=== PATIENT | female | born 1940 | race Hispanic/Latino ===

== ENCOUNTER → 2019-05-10 | Outpatient (CLI) | payer OTHER ==
[~2019-05-10] MED LIST: ACET-2743 PO; AEC81 PO; BACL10TA PO; CALC600T12 PO; CHOL500045 PO; LOSA50TA64 PO; METO50TA18 PO; OMEG300C3 PO; VITA1CAP PO
== END | disposition home or self-care (01) ==
LOC: RAH 11:57
PROVIDERS: ATTEND Internal Medicine
DX: M47.816 Spondylosis without myelopathy or radiculopathy, lumbar region (principal); M25.78 Osteophyte, vertebrae
CPT/HCPCS: 72100

== ENCOUNTER → 2019-07-31 | Outpatient (CLI) | payer OTHER | END | disposition home or self-care (01) | LOC: RAH 12:16 | PROVIDERS: ATTEND Internal Medicine | DX: M25.562 Pain in left knee (principal); M17.12 Unilateral primary osteoarthritis, left knee | CPT/HCPCS: 73562 ==

== ENCOUNTER 2023-05-31 17:38 | Emergency (ER) | payer MEDICARE ==
[~2023-05-31] VITALS: Ht 160 cm; Wt 62.6 kg
[~2023-05-31 17:38] MED LIST changes: +CALC-1125 PO; -CALC600T12 PO
[2023-05-31 18:50] LABS: BASOPHILS # (AUTO) 0.02 K/uL (0.00-0.20); BASOPHILS % (AUTO) 0.1 % (0.0-5.0); IMMATURE GRANULOCYTE ABSOLUTE 0.19 K/uL (0-1); LYMPHOCYTES # (AUTO) 1.7 K/uL (1.0-4.8); LYMPHOCYTES % (AUTO) 11.6 % (21.0-51.0); MEAN CORPUSCULAR HEMOGLOBIN 30.6 pg (27.0-33.0); MEAN CORPUSCULAR HGB CONC 34.4 g/dL (32.0-36.0); MEAN CORPUSCULAR VOLUME 89.1 fL (79-99); MONOCYTES # (AUTO) 1.9 K/uL (0.1-1.0); MONOCYTES % (AUTO) 12.7 % (3.0-13.0); NEUTROPHILS # (AUTO) 10.9 K/uL (1.8-7.7); NEUTROPHILS % (AUTO) 74.3 % (40.0-77.0); PLATELET COUNT (AUTO) 129 K/uL (130-400); RED BLOOD CELL COUNT(AUTO) 3.59 MIL/uL (4.00-5.50); WHITE BLOOD COUNT (AUTO) 14.6 K/uL (4.8-10.8)
[2023-05-31 19:09] LABS: ALBUMIN 2.4 g/dL (3.5-5.0); BILIRUBIN,TOTAL 0.7 mg/dL (0.2-1.0); TOTAL PROTEIN, SERUM 6.8 g/dL (6.0-8.3)
[2023-05-31 19:46] LABS: INR 1.15 (0.85-1.15); PROTHROMBIN TIME 13.2 SEC (9.6-11.6)
[2023-05-31] MEDS ORDERED: 0.9%NACL 1000ML 1,000 ML IV ONE (20:00)
[2023-05-31] MEDS ORDERED: IOHEXOL-350 75 ML VIAL IV ONE (21:27)
[2023-05-31 22:26] LABS: RAPID GROUP A STREP negative (NEGATIVE)
[2023-05-31 22:35] LABS: COVID19 (SARS ANTIGEN RAPID) PRESUMPTIVE NEGATIVE (NEGATIVE)
[2023-05-31 22:45] LABS: INFLUENZA TYPE A NEGATIVE FOR TYPE A (NEG); INFLUENZA TYPE B NEGATIVE FOR TYPE B (NEG)
[2023-05-31 23:08] VITALS: BP 127/84; PULSE 95; RESP 18; O2SAT 99
== END 2023-05-31 23:18 | disposition home or self-care (01) ==
LOC: EDH 17:38
DX: R06.02 Shortness of breath (principal); R59.0 Localized enlarged lymph nodes; E78.00 Pure hypercholesterolemia, unspecified; I10 Essential (primary) hypertension; Z90.710 Acquired absence of both cervix and uterus; Z79.899 Other long term (current) drug therapy; Z20.822 Contact with and (suspected) exposure to COVID-19
CPT/HCPCS: 99285; 84484; 80053; 83880; 85025; 85378; 85610; 85730; 87880; 87804 ×2; 83605; 87426; 36415; 71045; 71270; 93005; Q9967

== ENCOUNTER 2023-06-02 15:03 | Emergency (ER) | payer MEDICARE ==
[~2023-06-02] VITALS: Ht 160 cm; Wt 63.5 kg
[2023-06-02 15:32] LABS: BASOPHILS # (AUTO) 0.03 K/uL (0.00-0.20); BASOPHILS % (AUTO) 0.2 % (0.0-5.0); HEMATOCRIT 31.6 % (36-48); IMMATURE GRANULOCYTE ABSOLUTE 0.12 K/uL (0-1); LYMPHOCYTES % (AUTO) 12.7 % (21.0-51.0); MEAN CORPUSCULAR HEMOGLOBIN 30.3 pg (27.0-33.0); MEAN CORPUSCULAR HGB CONC 34.2 g/dL (32.0-36.0); MEAN CORPUSCULAR VOLUME 88.8 fL (79-99); MONOCYTES # (AUTO) 2.5 K/uL (0.1-1.0); MONOCYTES % (AUTO) 16.2 % (3.0-13.0); NEUTROPHILS # (AUTO) 10.7 K/uL (1.8-7.7); NEUTROPHILS % (AUTO) 70.1 % (40.0-77.0); PLATELET COUNT (AUTO) 102 K/uL (130-400); RED BLOOD CELL COUNT(AUTO) 3.56 MIL/uL (4.00-5.50); RED CELL DISTRIBUTION WIDTH 14.2 % (11.0-15.5); WHITE BLOOD COUNT (AUTO) 15.3 K/uL (4.8-10.8)
[2023-06-02 15:50] LABS: B-TYPE NATRIURETIC PEPTIDE 112 pg/mL (0-100)
[2023-06-02 16:15] LABS: BILIRUBIN,TOTAL 0.8 mg/dL (0.2-1.0); CREATININE 1.1 mg/dL (0.5-1.5); MAGNESIUM 1.6 mg/dL (1.80-2.40); POTASSIUM 4.1 mmol/L (3.5-5.1); TOTAL PROTEIN, SERUM 6.1 g/dL (6.0-8.3)
[2023-06-02 16:28] LABS: APPEARANCE,URINE CLEAR (CLEAR); BILIRUBIN,URINE NEGATIVE (NEGATIVE); COLOR,URINE YELLOW (YELLOW); GLUCOSE, URINE (UA) NEGATIVE (NEGATIVE); KETONES,URINE NEGATIVE (NEGATIVE); LEUKOCYTE ESTERASE ,URINE 250 Leu/uL (NEGATIVE); NITRATE,URINE NEGATIVE (NEGATIVE); PH,URINE 5.5 (5.0-8.0); PROTEIN,URINE 10 mg/dL (NEGATIVE); UROBILINOGEN,URINE 0.2 mg/dL (0.2-1.0)
[2023-06-02] MEDS ORDERED: ACETAMINOPHEN 500 MG TABLET PO ONE (16:30)
[2023-06-02 16:44] LABS: ADD UA MICROSCOPIC YES
[2023-06-02 16:47] LABS: BACTERIA,URINE MANY /HPF (None Seen); NON-SQUAMOUS EPITHELIAL CELL <1 /HPF (0-2); SQUAMOUS EPITHELIAL CELL,UR RARE /HPF (0-2); WBC,URINE 51-100 /HPF (0-1)
[2023-06-02] MEDS ORDERED: CEFTRIAXONE 1G VIAL IVPB ONE (18:00)
[2023-06-02] MEDS ORDERED: AZITHROMYCIN 250 MG TABLET PO ONE (18:30)
[2023-06-02 18:38] VITALS: BP 123/61; PULSE 83; RESP 17; O2SAT 98
[2023-06-02] MEDS ORDERED: CEFD300C3 PO (18:38)
[2023-06-02] MEDS ORDERED: AZIT250T9 PO (18:38)
== END 2023-06-02 19:46 | disposition home or self-care (01) ==
LOC: EDH 15:03
DX: J18.9 Pneumonia, unspecified organism (principal); N39.0 Urinary tract infection, site not specified; I10 Essential (primary) hypertension; E78.00 Pure hypercholesterolemia, unspecified; Z88.8 Allergy status to other drugs, medicaments and biological substances; Z79.899 Other long term (current) drug therapy; Z90.710 Acquired absence of both cervix and uterus
CPT/HCPCS: 99285; 96365; 71045; 83735; 84484; 80053; 83880; 85025; 87040 ×2; 87077; 87088; 87186; 81001; 36415; 93005; J0696

== ENCOUNTER 2023-07-03 05:25 | Inpatient (IN) | payer MEDICARE ==
[~2023-07-03] VITALS: Ht 170.2 cm; Wt 62.1 kg
[2023-07-03] VITALS (7 sets, daily range): BP systolic 128–145; BP diastolic 49–77; PULSE 96–180; RESP 16–18; O2SAT 93–97
[~2023-07-03 05:25] MED LIST changes: +AZIT250T9 PO; +CEFD300C3 PO
[2023-07-03 05:56] LABS: BASOPHILS # (AUTO) 0.05 K/uL (0.00-0.20); BASOPHILS % (AUTO) 0.5 % (0.0-5.0); HEMATOCRIT 26.7 % (36-48); IMMATURE GRANULOCYTE ABSOLUTE 0.45 K/uL (0-1); LYMPHOCYTES # (AUTO) 1.9 K/uL (1.0-4.8); LYMPHOCYTES % (AUTO) 17.7 % (21.0-51.0); MEAN CORPUSCULAR HGB CONC 35.2 g/dL (32.0-36.0); MEAN CORPUSCULAR VOLUME 93.7 fL (79-99); MONOCYTES # (AUTO) 1.6 K/uL (0.1-1.0); MONOCYTES % (AUTO) 14.6 % (3.0-13.0); NEUTROPHILS # (AUTO) 6.7 K/uL (1.8-7.7); PLATELET COUNT (AUTO) 82 K/uL (130-400); RED BLOOD CELL COUNT(AUTO) 2.85 MIL/uL (4.00-5.50); RED CELL DISTRIBUTION WIDTH 16.9 % (11.0-15.5); WHITE BLOOD COUNT (AUTO) 10.6 K/uL (4.8-10.8)
[2023-07-03 05:57] LABS: APPEARANCE,URINE CLEAR (CLEAR); BILIRUBIN,URINE NEGATIVE (NEGATIVE); COLOR,URINE YELLOW (YELLOW); GLUCOSE, URINE (UA) NEGATIVE (NEGATIVE); KETONES,URINE NEGATIVE (NEGATIVE); LEUKOCYTE ESTERASE ,URINE NEGATIVE Leu/uL (NEGATIVE); NITRATE,URINE NEGATIVE (NEGATIVE); OCCULT BLOOD,URINE SMALL (NEGATIVE); PH,URINE 5.5 (5.0-8.0); PROTEIN,URINE 10 mg/dL (NEGATIVE); UROBILINOGEN,URINE 0.2 mg/dL (0.2-1.0)
[2023-07-03 05:59] LABS: ADD UA MICROSCOPIC YES
[2023-07-03] MEDS ORDERED: CEFTRIAXONE 2GM VIAL IVPB ONE (06:00)
[2023-07-03] MEDS ORDERED: 0.9%NACL 1000ML 1,572 ML IV ONE (06:00)
[2023-07-03 06:01] LABS: MUCUS,URINE RARE LPF (None Seen); SQUAMOUS EPITHELIAL CELL,UR RARE /HPF (0-2)
[2023-07-03 06:15] LABS: SARS-CoV-2, RNA, NAAT NEGATIVE SARS CoV-2 (NEGATIVE)
[2023-07-03 06:16] LABS: ALBUMIN 2.2 g/dL (3.5-5.0); BILIRUBIN,TOTAL 0.8 mg/dL (0.2-1.0); CREATININE 1.1 mg/dL (0.5-1.5); MAGNESIUM 1.2 mg/dL (1.80-2.40); POTASSIUM 3.7 mmol/L (3.5-5.1); TOTAL PROTEIN, SERUM 6.4 g/dL (6.0-8.3)
[2023-07-03 06:19] LABS: INFLUENZA TYPE A Negative For Type A (NEGATIVE); INFLUENZA TYPE B Negative For Type B (NEGATIVE)
[2023-07-03] MEDS ORDERED: ACETAMINOPHEN 325 MG TAB PO ONE (06:30)
[2023-07-03] MEDS ORDERED: ONDANSETRON 4MG INJ IV PRN (08:30)
[2023-07-03] MEDS ORDERED: CEFTRIAXONE 1G VIAL 1 GM in 0.9%NACL 50ML 50 ML IV SCH (08:30)
[2023-07-03] MEDS: FAMOTIDINE 20MG TAB PO SCH ×2 (08:47→20:59)
[2023-07-03] MEDS ORDERED: CEFTRIAXONE 1G VIAL IVPB SCH (09:00)
[2023-07-03] MEDS ORDERED: ENOXAPARIN SODIUM 30 MG/0.3 ML SQ SCH ×2 (09:00→21:00)
[2023-07-03] MEDS: 0.9%NACL 1000ML 1,000 ML IV SCH ×2 (09:29→21:04)
[2023-07-03] MEDS ORDERED: DILTIAZEM 25MG INJ IVP ONE (10:30)
[2023-07-03] MEDS ORDERED: METOPROLOL TARTRATE 25 MG TAB PO ONE (11:00)
[2023-07-03] MEDS: DILTIAZEM 125 MG/25 ML INJ 125 MG in 0.9%NACL 100ML 100 ML IV SCH ×2 (12:09→21:04)
[2023-07-03] MEDS: DOXYCYCLINE 100MG+NS 250ML IV SCH ×2 (12:10→23:46)
[2023-07-03] MEDS: MAGNESIUM 2GM PREMIX 50ML 50 ML IV PRN (12:41)
[2023-07-03] MEDS ORDERED: DILTIAZEM 50MG VIAL IV SCH (13:30)
[2023-07-03] MEDS: ACETAMINOPHEN 325 MG TAB PO PRN ×2 (14:18→22:25)
[2023-07-03] MEDS: METOPROLOL TARTRATE 1 MG/ML 5ML VIAL IV PRN ×3 (16:07→23:45)
[2023-07-03] MEDS: METOPROLOL TARTRATE 25 MG TAB PO SCH ×2 (16:16→21:00)
[2023-07-03] MEDS: [UNRECOGNIZED DRUG - REMARK] MISC SCH (16:30)
[2023-07-03] MEDS ORDERED: METOPROLOL TARTRATE 1 MG/ML 5ML VIAL IV ONE (16:30)
[2023-07-03] MEDS ORDERED: FERR500P12 MC (16:31)
[2023-07-03] MEDS ORDERED: METO50TA18 PO (16:31)
[2023-07-03] MEDS ORDERED: CELE200 PO (16:31)
[2023-07-03] MEDS ORDERED: BACL10TA PO (16:31)
[2023-07-03] MEDS ORDERED: OMEP20CA12 PO (16:31)
[2023-07-03] MEDS ORDERED: METOPROLOL TARTRATE 25 MG TAB PO SCH (21:00)
[2023-07-04] VITALS (8 sets, daily range): BP systolic 146–161; BP diastolic 54–71; PULSE 85–115; RESP 17–18; O2SAT 96–99
[2023-07-04 04:14] LABS: BASOPHILS # (AUTO) 0.04 K/uL (0.00-0.20); BASOPHILS % (AUTO) 0.3 % (0.0-5.0); HEMATOCRIT 25.9 % (36-48); IMMATURE GRANULOCYTE ABSOLUTE 0.55 K/uL (0-1); LYMPHOCYTES # (AUTO) 2.1 K/uL (1.0-4.8); LYMPHOCYTES % (AUTO) 14.3 % (21.0-51.0); MEAN CORPUSCULAR HEMOGLOBIN 32.2 pg (27.0-33.0); MEAN CORPUSCULAR HGB CONC 33.6 g/dL (32.0-36.0); MEAN CORPUSCULAR VOLUME 95.9 fL (79-99); MONOCYTES # (AUTO) 2.7 K/uL (0.1-1.0); MONOCYTES % (AUTO) 18.9 % (3.0-13.0); NEUTROPHILS % (AUTO) 62.7 % (40.0-77.0); PLATELET COUNT (AUTO) 77 K/uL (130-400); RED CELL DISTRIBUTION WIDTH 17.4 % (11.0-15.5); WHITE BLOOD COUNT (AUTO) 14.3 K/uL (4.8-10.8)
[2023-07-04 04:27] LABS: TOTAL IRON BINDING CAPACITY 164 mcg/dL (250-450)
[2023-07-04 04:31] LABS: IRON, SERUM < 5 mcg/dL (50-170)
[2023-07-04 04:32] LABS: WBC MORPHOLOGY CONSISTENT W/DIFF
[2023-07-04 04:55] LABS: ALBUMIN 1.7 g/dL (3.5-5.0); ASPARTATE AMINOTRANSFERASE 23 U/L (10-37); BILIRUBIN,TOTAL 0.8 mg/dL (0.2-1.0); CARBON DIOXIDE 21 mmol/L (21-32); CHLORIDE 103 mmol/L (101-111); CREATININE 1.1 mg/dL (0.5-1.5); FERRITIN 719 ng/mL (15-150); GLOMERULAR FILTR. RATE CALC 50 mL/min (>90); GLUCOSE,RANDOM 121 mg/dL (70-105); POTASSIUM 3.8 mmol/L (3.5-5.1); SODIUM SERUM 133 mmol/L (136-145); TOTAL PROTEIN, SERUM 5.6 g/dL (6.0-8.3); UREA NITROGEN, BLOOD 19 mg/dL (7-18)
[2023-07-04 04:57] LABS: ALANINE AMINOTRANSFERASE < 6 U/L (12-78)
[2023-07-04] MEDS: CEFTRIAXONE 1G VIAL IVPB SCH (05:53)
[2023-07-04] MEDS: 0.9%NACL 1000ML 1,000 ML IV SCH (05:54)
[2023-07-04] MEDS: MAGNESIUM 2GM PREMIX 50ML 50 ML IV PRN (05:54)
[2023-07-04] MEDS: BISACODYL 5 MG TABLET.DR PO SCH (07:56)
[2023-07-04] MEDS: METOPROLOL TARTRATE 25 MG TAB PO SCH ×2 (07:56→19:57)
[2023-07-04] MEDS: [UNRECOGNIZED DRUG - REMARK] MISC SCH (10:30)
[2023-07-04] MEDS: FUROSEMIDE 20MG VIAL IV SCH ×2 (11:19→23:34)
[2023-07-04] MEDS: DOXYCYCLINE 100MG+NS 250ML IV SCH ×2 (11:19→23:35)
[2023-07-04 13:07] LABS: HEMOGLOBIN A1C 5.8 % (4.0-6.0)
[2023-07-04] MEDS ORDERED: IRON SUCROSE COMPLEX 300 MG in 0.9% NACL 250ML 250 ML IV ONE (21:00)
[2023-07-04] MEDS ORDERED: APIXABAN 5 MG TABLET PO SCH (21:00)
[2023-07-04] MEDS ORDERED: ENOXAPARIN SODIUM 60 MG/0.6 ML SQ SCH (21:00)
[2023-07-05] VITALS (139 sets, daily range): BP systolic 93–170; BP diastolic 34–117; PULSE 66–176; RESP 13–36; TEMP 98.3; O2SAT 97–100
[2023-07-05] MEDS ORDERED: LEVETIRACETAM 500 MG/5 ML SD VIAL IV ONE ×2 (02:29→02:30)
[2023-07-05] MEDS ORDERED: HYDRALAZINE 20MG/ML VIAL IV PRN (02:30)
[2023-07-05] MEDS ORDERED: 0.9%NACL 1000ML 1,000 ML IV SCH (03:00)
[2023-07-05] MEDS ORDERED: LABETALOL 20MG SYG IV PRN (03:00)
[2023-07-05] MEDS: METOPROLOL TARTRATE 1 MG/ML 5ML VIAL IV PRN ×5 (03:07→16:56)
[2023-07-05] MEDS: LEVETIRACETAM 500 MG/5 ML SD VIAL IV SCH ×3 (03:10→20:15)
[2023-07-05 04:22] LABS: BASOPHILS # (AUTO) 0.03 K/uL (0.00-0.20); BASOPHILS % (AUTO) 0.2 % (0.0-5.0); HEMATOCRIT 23.5 % (36-48); IMMATURE GRANULOCYTE ABSOLUTE 0.26 K/uL (0-1); LYMPHOCYTES # (AUTO) 1.9 K/uL (1.0-4.8); LYMPHOCYTES % (AUTO) 13.6 % (21.0-51.0); MEAN CORPUSCULAR HEMOGLOBIN 31.9 pg (27.0-33.0); MEAN CORPUSCULAR VOLUME 93.6 fL (79-99); MONOCYTES # (AUTO) 1.9 K/uL (0.1-1.0); MONOCYTES % (AUTO) 14.2 % (3.0-13.0); NEUTROPHILS # (AUTO) 9.6 K/uL (1.8-7.7); NEUTROPHILS % (AUTO) 70.1 % (40.0-77.0); NUCLEATED RED BLOOD CELLS 0.1 % (0.0-0.19); PLATELET COUNT (AUTO) 73 K/uL (130-400); RED BLOOD CELL COUNT(AUTO) 2.51 MIL/uL (4.00-5.50); RED CELL DISTRIBUTION WIDTH 17.2 % (11.0-15.5); WHITE BLOOD COUNT (AUTO) 13.6 K/uL (4.8-10.8)
[2023-07-05 04:38] LABS: INR 1.44 (0.85-1.15); PROTHROMBIN TIME 16.3 SEC (9.6-11.6)
[2023-07-05 04:40] LABS: PARTIAL THROMBOPLASTIN TIME 61.3 SEC (26.3-35.5)
[2023-07-05 04:41] LABS: ALBUMIN 1.6 g/dL (3.5-5.0); ASPARTATE AMINOTRANSFERASE 22 U/L (10-37); CARBON DIOXIDE 21 mmol/L (21-32); CHLORIDE 100 mmol/L (101-111); CREATININE 0.9 mg/dL (0.5-1.5); GLOMERULAR FILTR. RATE CALC 64 mL/min (>90); GLUCOSE,RANDOM 123 mg/dL (70-105); SODIUM SERUM 132 mmol/L (136-145); TOTAL PROTEIN, SERUM 5.5 g/dL (6.0-8.3); UREA NITROGEN, BLOOD 21 mg/dL (7-18)
[2023-07-05 04:46] LABS: ALANINE AMINOTRANSFERASE < 6 U/L (12-78); POTASSIUM 2.7 mmol/L (3.5-5.1)
[2023-07-05] MEDS: CEFTRIAXONE 1G VIAL IVPB SCH (05:01)
[2023-07-05] MEDS ORDERED: POTASSIUM CHLORIDE 10MEQ/100ML 10 MEQ/100 ML ML IV ONE (05:30)
[2023-07-05] MEDS: ACETAMINOPHEN 325 MG TAB PO PRN ×2 (05:40→16:56)
[2023-07-05] MEDS ORDERED: POTASSIUM CHLORIDE 10% ELIXIR 20 MEQ/15 ML UDCUP PO ONE ×2 (06:00→08:00)
[2023-07-05] MEDS ORDERED: SODIUM BICARB 8.4% 50ML SYRINGE IVP SCH (07:30)
[2023-07-05] MEDS: PANTOPRAZOLE 40 MG TAB DR PO SCH (08:50)
[2023-07-05] MEDS: METOPROLOL TARTRATE 25 MG TAB PO SCH ×2 (08:50→20:15)
[2023-07-05] MEDS: MAGNESIUM 2GM PREMIX 50ML 50 ML IV PRN ×2 (08:51→14:33)
[2023-07-05] MEDS: BISACODYL 5 MG TABLET.DR PO SCH ×2 (09:00→09:07)
[2023-07-05] MEDS ORDERED: DEXTROSE 50%-WATER 50 ML DISP.SYRIN IV PRN (09:00)
[2023-07-05] MEDS ORDERED: KCL 20 MEQ ERTAB PO PRN (09:00)
[2023-07-05] MEDS ORDERED: GLUCAGON 1MG KIT 1 MG ML IM PRN (09:00)
[2023-07-05] MEDS ORDERED: 0.9%NACL 50ML IV SCH (09:30)
[2023-07-05] MEDS: FUROSEMIDE 20MG VIAL IV SCH ×2 (09:34→09:45)
[2023-07-05] MEDS: ZOSYN 3.375GM +NS 50ML IVPB SCH ×2 (10:29→16:57)
[2023-07-05] MEDS: IRON SUCROSE COMPLEX 300 MG in 0.9% NACL 250ML 250 ML IV SCH (10:29)
[2023-07-05] MEDS ORDERED: COMPOUND IV MISC 1 EACH IVSOLN MISC PRN (12:00)
[2023-07-05 12:17] LABS: MAGNESIUM 7.4 mg/dL (1.80-2.40); POTASSIUM 3.1 mmol/L (3.5-5.1)
[2023-07-05 12:19] LABS: APPEARANCE,URINE CLEAR (CLEAR); BILIRUBIN,URINE NEGATIVE (NEGATIVE); COLOR,URINE LIGHT-YELLOW (YELLOW); GLUCOSE, URINE (UA) NEGATIVE (NEGATIVE); KETONES,URINE NEGATIVE (NEGATIVE); LEUKOCYTE ESTERASE ,URINE NEGATIVE Leu/uL (NEGATIVE); NITRATE,URINE NEGATIVE (NEGATIVE); PROTEIN,URINE NEGATIVE (NEGATIVE); UROBILINOGEN,URINE 0.2 mg/dL (0.2-1.0)
[2023-07-05 12:26] LABS: ADD UA MICROSCOPIC YES
[2023-07-05] MEDS: DOXYCYCLINE 100MG+NS 250ML IV SCH ×2 (12:29→23:36)
[2023-07-05 13:04] LABS: RBC,URINE 0-1 /HPF (0-1); WBC,URINE 0-1 /HPF (0-1)
[2023-07-05] MEDS: KCL 20 MEQ ERTAB PO SCH (14:34)
[2023-07-05] MEDS ORDERED: DILTIAZEM 25MG INJ IVP ONE ×3 (14:43→16:00)
[2023-07-05] MEDS ORDERED: AMIODARONE 900MG VIAL 150 MG in DEXTROSE 5%-WATER 100 ML IV SCH (15:00)
[2023-07-05] MEDS ORDERED: DILTIAZEM 125 MG/25 ML INJ 125 MG in 0.9%NACL 100ML 100 ML IV PRN ×4 (15:00)
[2023-07-05] MEDS ORDERED: AMIODARONE 900MG VIAL 360 MG in DEXTROSE 5%-WATER 200 ML IV ONE (15:15)
[2023-07-05 17:19] LABS: ABG BASE EXCESS -1.5 mmol/L (-2.0-3.0); ABG HCO3 20.4 mmol/L (21.0-28.0); ABG OXYGEN SATURATION 95.1 % (95.0-99.0); ABG PCO2 25 mmHg (32-45); CARBON MONOXIDE 0.3; HHb 4.8; PO2, ARTERIAL BG 76.8 mmHg (83.0-108.0); VENT MODE, BG 2LNC (ROOM AIR)
[2023-07-05] MEDS: BUMETANIDE 2.5MG/10ML VIAL 40 ML IV SCH (18:08)
[2023-07-05] MEDS: AMIODARONE 900MG VIAL 540 MG in DEXTROSE 5%-WATER 300 ML IV SCH (20:56)
[2023-07-06] VITALS (75 sets, daily range): BP systolic 114–155; BP diastolic 43–69; PULSE 72–98; RESP 13–31; O2SAT 97–99
[2023-07-06] MEDS: ZOSYN 3.375GM +NS 50ML IVPB SCH ×3 (01:18→17:58)
[2023-07-06] MEDS: BUMETANIDE 2.5MG/10ML VIAL 40 ML IV SCH ×2 (03:33→22:43)
[2023-07-06 04:10] LABS: BASOPHILS # (AUTO) 0.04 K/uL (0.00-0.20); BASOPHILS % (AUTO) 0.3 % (0.0-5.0); EOSINOPHILS # (AUTO) 0.01 K/uL (0.00-0.70); EOSINOPHILS % (AUTO) 0.1 % (0.0-8.0); HEMATOCRIT 21.2 % (36-48); IMMATURE GRANULOCYTE ABSOLUTE 0.18 K/uL (0-1); LYMPHOCYTES # (AUTO) 1.9 K/uL (1.0-4.8); MEAN CORPUSCULAR HEMOGLOBIN 31.7 pg (27.0-33.0); MEAN CORPUSCULAR HGB CONC 33.5 g/dL (32.0-36.0); MEAN CORPUSCULAR VOLUME 94.6 fL (79-99); MONOCYTES # (AUTO) 1.7 K/uL (0.1-1.0); MONOCYTES % (AUTO) 13.3 % (3.0-13.0); NEUTROPHILS # (AUTO) 8.9 K/uL (1.8-7.7); NEUTROPHILS % (AUTO) 69.9 % (40.0-77.0); NUCLEATED RED BLOOD CELLS 0.2 % (0.0-0.19); PLATELET COUNT (AUTO) 63 K/uL (130-400); RED BLOOD CELL COUNT(AUTO) 2.24 MIL/uL (4.00-5.50); RED CELL DISTRIBUTION WIDTH 17.5 % (11.0-15.5); WHITE BLOOD COUNT (AUTO) 12.7 K/uL (4.8-10.8)
[2023-07-06 04:25] LABS: ALBUMIN 1.7 g/dL (3.5-5.0); BILIRUBIN,TOTAL 1.3 mg/dL (0.2-1.0); CREATININE 1.1 mg/dL (0.5-1.5); POTASSIUM 3.1 mmol/L (3.5-5.1); TOTAL PROTEIN, SERUM 5.6 g/dL (6.0-8.3)
[2023-07-06] MEDS: POTASSIUM CHLORIDE 20MEQ/100ML 100 ML IV PRN ×2 (05:38→15:42)
[2023-07-06] MEDS: PANTOPRAZOLE 40 MG TAB DR PO SCH (09:00)
[2023-07-06] MEDS: BISACODYL 5 MG TABLET.DR PO SCH (09:00)
[2023-07-06] MEDS: METOPROLOL TARTRATE 25 MG TAB PO SCH ×2 (09:00→20:33)
[2023-07-06] MEDS: KCL 20 MEQ ERTAB PO SCH ×2 (09:00→20:32)
[2023-07-06] MEDS: LEVETIRACETAM 500 MG/5 ML SD VIAL IV SCH ×2 (09:17→20:32)
[2023-07-06] MEDS: IRON SUCROSE COMPLEX 300 MG in 0.9% NACL 250ML 250 ML IV SCH (10:41)
[2023-07-06] MEDS: DOXYCYCLINE 100MG+NS 250ML IV SCH ×2 (13:48→22:45)
[2023-07-06] MEDS: AMIODARONE 900MG VIAL 540 MG in DEXTROSE 5%-WATER 300 ML IV SCH (15:27)
[2023-07-07] VITALS (10 sets, daily range): BP systolic 127–151; BP diastolic 55–72; PULSE 79–96; RESP 18–20; O2SAT 95–99
[2023-07-07] MEDS: ZOSYN 3.375GM +NS 50ML IVPB SCH ×3 (01:01→17:27)
[2023-07-07 07:08] LABS: BASOPHILS # (AUTO) 0.02 K/uL (0.00-0.20); BASOPHILS % (AUTO) 0.2 % (0.0-5.0); EOSINOPHILS # (AUTO) 0.01 K/uL (0.00-0.70); EOSINOPHILS % (AUTO) 0.1 % (0.0-8.0); IMMATURE GRANULOCYTE ABSOLUTE 0.15 K/uL (0-1); LYMPHOCYTES # (AUTO) 1.7 K/uL (1.0-4.8); LYMPHOCYTES % (AUTO) 15.4 % (21.0-51.0); MEAN CORPUSCULAR HEMOGLOBIN 32.9 pg (27.0-33.0); MEAN CORPUSCULAR HGB CONC 35.1 g/dL (32.0-36.0); MEAN CORPUSCULAR VOLUME 93.6 fL (79-99); MONOCYTES # (AUTO) 1.7 K/uL (0.1-1.0); MONOCYTES % (AUTO) 15.3 % (3.0-13.0); NEUTROPHILS # (AUTO) 7.5 K/uL (1.8-7.7); NEUTROPHILS % (AUTO) 67.6 % (40.0-77.0); NUCLEATED RED BLOOD CELLS 0.4 % (0.0-0.19); PLATELET COUNT (AUTO) 53 K/uL (130-400); RED BLOOD CELL COUNT(AUTO) 2.19 MIL/uL (4.00-5.50); RED CELL DISTRIBUTION WIDTH 17.3 % (11.0-15.5); WHITE BLOOD COUNT (AUTO) 11.1 K/uL (4.8-10.8)
[2023-07-07 07:14] LABS: HEMATOCRIT 20.5 % (36-48)
[2023-07-07 07:26] LABS: ALBUMIN 1.5 g/dL (3.5-5.0); BILIRUBIN,TOTAL 1.3 mg/dL (0.2-1.0); CREATININE 1.2 mg/dL (0.5-1.5); TOTAL PROTEIN, SERUM 5.3 g/dL (6.0-8.3)
[2023-07-07 07:54] LABS: POTASSIUM 2.5 mmol/L (3.5-5.1)
[2023-07-07 08:00] LABS: PLATELET MORPHOLOGY COMMENT DECREASED
[2023-07-07] MEDS: BISACODYL 5 MG TABLET.DR PO SCH (08:03)
[2023-07-07] MEDS: PANTOPRAZOLE 40 MG TAB DR PO SCH (08:03)
[2023-07-07] MEDS: AMIODARONE 200 MG TABLET PO SCH (08:03)
[2023-07-07] MEDS: KCL 20 MEQ ERTAB PO SCH ×2 (08:04→20:56)
[2023-07-07] MEDS: POTASSIUM CHLORIDE 20MEQ/100ML 100 ML IV PRN ×3 (08:04→23:01)
[2023-07-07] MEDS: LEVETIRACETAM 500 MG/5 ML SD VIAL IV SCH ×2 (08:10→20:54)
[2023-07-07] MEDS: METOPROLOL TARTRATE 25 MG TAB PO SCH ×2 (08:15→20:54)
[2023-07-07] MEDS ORDERED: BUMETANIDE 2.5MG/10ML VIAL 40 ML IV SCH (09:30)
[2023-07-07] MEDS: AMIODARONE 900MG VIAL 540 MG in DEXTROSE 5%-WATER 300 ML IV SCH (10:44)
[2023-07-07 11:14] LABS: ROCKY MT SPOTTED FEVER IGG <1:64 (Neg:<1:64); ROCKY MT SPOTTED FEVER IGM <1:64 (Neg:<1:64); TYPHUS FEVER AB IGG <1:64 (Neg:<1:64); TYPHUS FEVER AB IGM <1:64 (Neg:<1:64)
[2023-07-07] MEDS: DOXYCYCLINE 100MG+NS 250ML IV SCH ×2 (11:44→23:00)
[2023-07-07] MEDS ORDERED: PHARMACY COMMUNICATION MISC SCH (12:30)
[2023-07-07] MEDS ORDERED: LIDO 2% VISC 30ML+MAG/AL/SIMETH 30ML+DICYCLOMINE 20MG 10ML PO PRN ×3 (13:30)
[2023-07-07] MEDS ORDERED: COMPOUND PO MISCELLANEOUS 1 EACH MISC MISC PRN (13:30)
[2023-07-07] MEDS: POLYETHYLENE GLYCOL 3350 17 GM POWD.PACK PO SCH (13:37)
[2023-07-07] MEDS: NYSTATIN 100000 UNIT/ML 5ML UDCUP PO SCH ×2 (17:27→20:54)
[2023-07-07] MEDS: ACETAMINOPHEN 325 MG TAB PO PRN (20:55)
[2023-07-07 21:30] LABS: BASOPHILS # (AUTO) 0.02 K/uL (0.00-0.20); BASOPHILS % (AUTO) 0.2 % (0.0-5.0); EOSINOPHILS # (AUTO) 0.01 K/uL (0.00-0.70); EOSINOPHILS % (AUTO) 0.1 % (0.0-8.0); HEMATOCRIT 26.6 % (36-48); IMMATURE GRANULOCYTE ABSOLUTE 0.09 K/uL (0-1); LYMPHOCYTES # (AUTO) 1.9 K/uL (1.0-4.8); LYMPHOCYTES % (AUTO) 16.6 % (21.0-51.0); MEAN CORPUSCULAR HEMOGLOBIN 31.6 pg (27.0-33.0); MEAN CORPUSCULAR HGB CONC 33.8 g/dL (32.0-36.0); MEAN CORPUSCULAR VOLUME 93.3 fL (79-99); MONOCYTES # (AUTO) 1.4 K/uL (0.1-1.0); MONOCYTES % (AUTO) 12.2 % (3.0-13.0); NEUTROPHILS # (AUTO) 7.9 K/uL (1.8-7.7); NEUTROPHILS % (AUTO) 70.1 % (40.0-77.0); NUCLEATED RED BLOOD CELLS 0.4 % (0.0-0.19); PLATELET COUNT (AUTO) 46 K/uL (130-400); RED BLOOD CELL COUNT(AUTO) 2.85 MIL/uL (4.00-5.50); RED CELL DISTRIBUTION WIDTH 16.4 % (11.0-15.5); WHITE BLOOD COUNT (AUTO) 11.2 K/uL (4.8-10.8)
[2023-07-08] VITALS (12 sets, daily range): BP systolic 117–154; BP diastolic 54–77; PULSE 71–126; RESP 17–23; O2SAT 96–99
[2023-07-08] MEDS: POTASSIUM CHLORIDE 20MEQ/100ML 100 ML IV PRN (00:18)
[2023-07-08] MEDS: ZOSYN 3.375GM +NS 50ML IVPB SCH ×3 (01:46→16:19)
[2023-07-08 05:09] LABS: BASOPHILS # (AUTO) 0.02 K/uL (0.00-0.20); BASOPHILS % (AUTO) 0.2 % (0.0-5.0); EOSINOPHILS # (AUTO) 0.03 K/uL (0.00-0.70); EOSINOPHILS % (AUTO) 0.3 % (0.0-8.0); HEMATOCRIT 27.2 % (36-48); IMMATURE GRANULOCYTE ABSOLUTE 0.12 K/uL (0-1); LYMPHOCYTES # (AUTO) 1.8 K/uL (1.0-4.8); LYMPHOCYTES % (AUTO) 16.1 % (21.0-51.0); MEAN CORPUSCULAR HEMOGLOBIN 31.5 pg (27.0-33.0); MEAN CORPUSCULAR HGB CONC 33.8 g/dL (32.0-36.0); MEAN CORPUSCULAR VOLUME 93.2 fL (79-99); MONOCYTES # (AUTO) 1.5 K/uL (0.1-1.0); NEUTROPHILS # (AUTO) 7.9 K/uL (1.8-7.7); NEUTROPHILS % (AUTO) 69.3 % (40.0-77.0); NUCLEATED RED BLOOD CELLS 0.2 % (0.0-0.19); PLATELET COUNT (AUTO) 49 K/uL (130-400); RED BLOOD CELL COUNT(AUTO) 2.92 MIL/uL (4.00-5.50); RED CELL DISTRIBUTION WIDTH 16.7 % (11.0-15.5); WHITE BLOOD COUNT (AUTO) 11.3 K/uL (4.8-10.8)
[2023-07-08 05:25] LABS: ALBUMIN 1.6 g/dL (3.5-5.0); BILIRUBIN,TOTAL 1.8 mg/dL (0.2-1.0); CREATININE 1.3 mg/dL (0.5-1.5); POTASSIUM 3.3 mmol/L (3.5-5.1); TOTAL PROTEIN, SERUM 5.2 g/dL (6.0-8.3)
[2023-07-08] MEDS: METOPROLOL TARTRATE 25 MG TAB PO SCH ×2 (08:20→21:43)
[2023-07-08] MEDS: LEVETIRACETAM 500 MG/5 ML SD VIAL IV SCH ×2 (08:21→21:42)
[2023-07-08] MEDS: KCL 20 MEQ ERTAB PO SCH ×2 (08:21→21:43)
[2023-07-08] MEDS: NYSTATIN 100000 UNIT/ML 5ML UDCUP PO SCH ×4 (08:21→21:52)
[2023-07-08] MEDS: PANTOPRAZOLE 40 MG TAB DR PO SCH (08:21)
[2023-07-08] MEDS: BISACODYL 5 MG TABLET.DR PO SCH (08:21)
[2023-07-08] MEDS: AMIODARONE 200 MG TABLET PO SCH (08:21)
[2023-07-08] MEDS: POLYETHYLENE GLYCOL 3350 17 GM POWD.PACK PO SCH (08:21)
[2023-07-08] MEDS: DOXYCYCLINE 100MG+NS 250ML IV SCH (10:31)
[2023-07-08] MEDS: POTASSIUM CHLORIDE 10% ELIXIR 20 MEQ/15 ML UDCUP PO PRN (18:00)
[2023-07-08] MEDS: LEVETIRACETAM 500 MG in 0.9%NACL 100ML 100 ML IV SCH (21:42)
[2023-07-09] VITALS (10 sets, daily range): BP systolic 127–149; BP diastolic 53–81; PULSE 71–87; RESP 18; O2SAT 96–100
[2023-07-09] MEDS: DOXYCYCLINE 100MG+NS 250ML IV SCH ×3 (00:58→22:33)
[2023-07-09] MEDS: ZOSYN 3.375GM +NS 50ML IVPB SCH ×3 (00:58→17:50)
[2023-07-09 04:16] LABS: BASOPHILS # (AUTO) 0.03 K/uL (0.00-0.20); BASOPHILS % (AUTO) 0.3 % (0.0-5.0); EOSINOPHILS # (AUTO) 0.03 K/uL (0.00-0.70); EOSINOPHILS % (AUTO) 0.3 % (0.0-8.0); HEMATOCRIT 26.9 % (36-48); IMMATURE GRANULOCYTE ABSOLUTE 0.12 K/uL (0-1); LYMPHOCYTES # (AUTO) 2.2 K/uL (1.0-4.8); LYMPHOCYTES % (AUTO) 18.7 % (21.0-51.0); MEAN CORPUSCULAR HEMOGLOBIN 31.7 pg (27.0-33.0); MEAN CORPUSCULAR HGB CONC 34.2 g/dL (32.0-36.0); MEAN CORPUSCULAR VOLUME 92.8 fL (79-99); MONOCYTES # (AUTO) 1.3 K/uL (0.1-1.0); MONOCYTES % (AUTO) 11.1 % (3.0-13.0); NEUTROPHILS # (AUTO) 8.1 K/uL (1.8-7.7); NEUTROPHILS % (AUTO) 68.6 % (40.0-77.0); PLATELET COUNT (AUTO) 64 K/uL (130-400); RED CELL DISTRIBUTION WIDTH 17.2 % (11.0-15.5); WHITE BLOOD COUNT (AUTO) 11.9 K/uL (4.8-10.8)
[2023-07-09 04:29] LABS: ALBUMIN 1.7 g/dL (3.5-5.0); BILIRUBIN,TOTAL 1.9 mg/dL (0.2-1.0); CREATININE 1.2 mg/dL (0.5-1.5); POTASSIUM 3.2 mmol/L (3.5-5.1); TOTAL PROTEIN, SERUM 5.4 g/dL (6.0-8.3)
[2023-07-09] MEDS: POTASSIUM CHLORIDE 10% ELIXIR 20 MEQ/15 ML UDCUP PO PRN (05:46)
[2023-07-09 08:29] LABS: MAGNESIUM 1.2 mg/dL (1.80-2.40); POTASSIUM 4.5 mmol/L (3.5-5.1)
[2023-07-09] MEDS: POLYETHYLENE GLYCOL 3350 17 GM POWD.PACK PO SCH (09:00)
[2023-07-09] MEDS: KCL 20 MEQ ERTAB PO SCH ×2 (09:00→20:36)
[2023-07-09] MEDS: LEVETIRACETAM 500 MG in 0.9%NACL 100ML 100 ML IV SCH ×2 (09:00→20:35)
[2023-07-09] MEDS: LEVETIRACETAM 500 MG/5 ML SD VIAL IV SCH ×2 (10:28→20:35)
[2023-07-09] MEDS: BISACODYL 5 MG TABLET.DR PO SCH (10:29)
[2023-07-09] MEDS: METOPROLOL TARTRATE 25 MG TAB PO SCH ×2 (10:30→20:36)
[2023-07-09] MEDS: PANTOPRAZOLE 40 MG TAB DR PO SCH (10:31)
[2023-07-09] MEDS: AMIODARONE 200 MG TABLET PO SCH (10:31)
[2023-07-09] MEDS: NYSTATIN 100000 UNIT/ML 5ML UDCUP PO SCH ×4 (12:15→20:36)
[2023-07-09] MEDS: MAGNESIUM 2GM PREMIX 50ML 50 ML IV PRN (12:16)
[2023-07-09 20:23] LABS: POTASSIUM 3.1 mmol/L (3.5-5.1)
[2023-07-09] MEDS ORDERED: DIPHENHYDRAMINE HCL 25 MG CAPSULE PO PRN (20:30)
[2023-07-09] MEDS: POTASSIUM CHLORIDE 20MEQ/100ML 100 ML IV PRN ×2 (22:04→23:06)
[2023-07-10] VITALS (8 sets, daily range): BP systolic 119–144; BP diastolic 54–66; PULSE 70–80; RESP 18; O2SAT 96–97
[2023-07-10 07:37] LABS: BASOPHILS # (AUTO) 0.04 K/uL (0.00-0.20); BASOPHILS % (AUTO) 0.4 % (0.0-5.0); EOSINOPHILS # (AUTO) 0.03 K/uL (0.00-0.70); EOSINOPHILS % (AUTO) 0.3 % (0.0-8.0); HEMATOCRIT 25.5 % (36-48); IMMATURE GRANULOCYTE ABSOLUTE 0.08 K/uL (0-1); LYMPHOCYTES # (AUTO) 2.1 K/uL (1.0-4.8); MEAN CORPUSCULAR HEMOGLOBIN 31.7 pg (27.0-33.0); MEAN CORPUSCULAR HGB CONC 32.9 g/dL (32.0-36.0); MEAN CORPUSCULAR VOLUME 96.2 fL (79-99); MONOCYTES # (AUTO) 1.1 K/uL (0.1-1.0); MONOCYTES % (AUTO) 11.5 % (3.0-13.0); NEUTROPHILS # (AUTO) 6.2 K/uL (1.8-7.7); PLATELET COUNT (AUTO) 63 K/uL (130-400); RED BLOOD CELL COUNT(AUTO) 2.65 MIL/uL (4.00-5.50); RED CELL DISTRIBUTION WIDTH 18.3 % (11.0-15.5); WHITE BLOOD COUNT (AUTO) 9.6 K/uL (4.8-10.8)
[2023-07-10 07:52] LABS: ALBUMIN 1.6 g/dL (3.5-5.0); BILIRUBIN,TOTAL 1.7 mg/dL (0.2-1.0); CREATININE 1.1 mg/dL (0.5-1.5); POTASSIUM 3.6 mmol/L (3.5-5.1); TOTAL PROTEIN, SERUM 5.2 g/dL (6.0-8.3)
[2023-07-10] MEDS: LEVETIRACETAM 500 MG in 0.9%NACL 100ML 100 ML IV SCH ×2 (09:00→23:05)
[2023-07-10] MEDS ORDERED: MAGNESIUM 2GM PREMIX 50ML 50 ML IV SCH (09:00)
[2023-07-10] MEDS: POLYETHYLENE GLYCOL 3350 17 GM POWD.PACK PO SCH ×2 (09:00→10:44)
[2023-07-10] MEDS: BISACODYL 5 MG TABLET.DR PO SCH (09:00)
[2023-07-10 09:12] LABS: BASOPHILS % (MANUAL) 2 % (0-2); LYMPHOCYTES % (MANUAL) 6 % (22-44); MAN.DIFF COMMENT-IMPRESSION MANUAL DIFFERENTIAL; MONOCYTES % (MANUAL) 4 % (2-9); PLATELET MORPHOLOGY COMMENT DECREASED; SEGMENTED NEUTROPHILS % 88 % (40-70); TOTAL CELLS COUNTED 100
[2023-07-10] MEDS: DOXYCYCLINE 100MG+NS 250ML IV SCH ×2 (10:41→23:06)
[2023-07-10] MEDS: FUROSEMIDE 20 MG TABLET PO SCH (10:42)
[2023-07-10] MEDS: AMIODARONE 200 MG TABLET PO SCH (10:43)
[2023-07-10] MEDS: NYSTATIN 100000 UNIT/ML 5ML UDCUP PO SCH ×4 (10:43→21:39)
[2023-07-10] MEDS: METOPROLOL TARTRATE 25 MG TAB PO SCH ×2 (10:43→21:40)
[2023-07-10] MEDS: PANTOPRAZOLE 40 MG TAB DR PO SCH (10:43)
[2023-07-10] MEDS: KCL 20 MEQ ERTAB PO SCH ×2 (10:44→21:40)
[2023-07-10] MEDS: LEVETIRACETAM 500 MG/5 ML SD VIAL IV SCH (10:44)
[2023-07-10] MEDS: LORATADINE 10 MG TABLET PO SCH (17:18)
[2023-07-10] MEDS ORDERED: LEVETIRACETAM 500 MG/5 ML SD VIAL IV ONE (22:11)
[2023-07-11 04:08] LABS: BASOPHILS # (AUTO) 0.04 K/uL (0.00-0.20); BASOPHILS % (AUTO) 0.4 % (0.0-5.0); EOSINOPHILS # (AUTO) 0.03 K/uL (0.00-0.70); EOSINOPHILS % (AUTO) 0.3 % (0.0-8.0); HEMATOCRIT 24.1 % (36-48); IMMATURE GRANULOCYTE ABSOLUTE 0.06 K/uL (0-1); LYMPHOCYTES # (AUTO) 2.5 K/uL (1.0-4.8); LYMPHOCYTES % (AUTO) 27.1 % (21.0-51.0); MEAN CORPUSCULAR HEMOGLOBIN 32.8 pg (27.0-33.0); MEAN CORPUSCULAR HGB CONC 34.4 g/dL (32.0-36.0); MEAN CORPUSCULAR VOLUME 95.3 fL (79-99); MONOCYTES # (AUTO) 0.9 K/uL (0.1-1.0); MONOCYTES % (AUTO) 9.6 % (3.0-13.0); NEUTROPHILS # (AUTO) 5.8 K/uL (1.8-7.7); PLATELET COUNT (AUTO) 73 K/uL (130-400); RED BLOOD CELL COUNT(AUTO) 2.53 MIL/uL (4.00-5.50); RED CELL DISTRIBUTION WIDTH 18.1 % (11.0-15.5); WHITE BLOOD COUNT (AUTO) 9.4 K/uL (4.8-10.8)
[2023-07-11 04:27] VITALS: BP 130/64; PULSE 77; RESP 18
[2023-07-11 04:53] LABS: ALBUMIN 1.7 g/dL (3.5-5.0); BILIRUBIN,TOTAL 1.5 mg/dL (0.2-1.0); CREATININE 0.9 mg/dL (0.5-1.5); MAGNESIUM 1.7 mg/dL (1.80-2.40); POTASSIUM 4.1 mmol/L (3.5-5.1); TOTAL PROTEIN, SERUM 5.2 g/dL (6.0-8.3)
[2023-07-11] MEDS: MAGNESIUM 2GM PREMIX 50ML 50 ML IV PRN (05:50)
[2023-07-11 07:50] VITALS: BP 140/59; PULSE 81; RESP 20
[2023-07-11 08:00] VITALS: O2SAT 97
[2023-07-11] MEDS: AMIODARONE 200 MG TABLET PO SCH (09:09)
[2023-07-11] MEDS: NYSTATIN 100000 UNIT/ML 5ML UDCUP PO SCH ×2 (09:09→11:44)
[2023-07-11] MEDS: METOPROLOL TARTRATE 25 MG TAB PO SCH (09:10)
[2023-07-11] MEDS: FUROSEMIDE 20 MG TABLET PO SCH (09:10)
[2023-07-11] MEDS: PANTOPRAZOLE 40 MG TAB DR PO SCH (09:10)
[2023-07-11] MEDS: KCL 20 MEQ ERTAB PO SCH (09:11)
[2023-07-11] MEDS: LORATADINE 10 MG TABLET PO SCH (09:17)
[2023-07-11] MEDS: LEVETIRACETAM 500 MG in 0.9%NACL 100ML 100 ML IV SCH (09:17)
[2023-07-11 11:37] VITALS: BP 146/54; PULSE 66; RESP 20
[2023-07-11] MEDS: DOXYCYCLINE 100MG+NS 250ML IV SCH (11:44)
[2023-07-11] MEDS ORDERED: LEVE-43 PO (14:43)
[2023-07-11] MEDS ORDERED: METO25 PO (14:43)
[2023-07-11] MEDS ORDERED: AMIO200T44 PO (14:43)
[2023-07-11] MEDS ORDERED: FURO20TA6 PO (14:43)
== END 2023-07-11 16:00 | disposition home or self-care (01) | DRG 871 ==
LOC: EDH 05:25 → EDHIP 08:27 → 2DH 12:28 → 2BH 07-05 02:59 → 2DH 07-06 18:41
PROVIDERS: ADMIT Internal Medicine; ATTEND Internal Medicine
PROC: 30233K1 Transfusion of Nonautologous Frozen Plasma into Peripheral Vein, Percutaneous Approach (ICD-10-PCS; 2023-07-05)
PROC: 5A09357 Assistance with Respiratory Ventilation, Less than 24 Consecutive Hours, Continuous Positive Airway Pressure (ICD-10-PCS; 2023-07-05)
PROC: 02HV33Z Insertion of Infusion Device into Superior Vena Cava, Percutaneous Approach (ICD-10-PCS; principal; 2023-07-06)
PROC: 30233N1 Transfusion of Nonautologous Red Blood Cells into Peripheral Vein, Percutaneous Approach (ICD-10-PCS; 2023-07-07)
DX: A41.59 Other Gram-negative sepsis (principal); I50.33 Acute on chronic diastolic (congestive) heart failure; I62.01 Nontraumatic acute subdural hemorrhage; J69.0 Pneumonitis due to inhalation of food and vomit; A75.9 Typhus fever, unspecified; E87.1 Hypo-osmolality and hyponatremia; E44.0 Moderate protein-calorie malnutrition; D62 Acute posthemorrhagic anemia; I48.92 Unspecified atrial flutter; K92.2 Gastrointestinal hemorrhage, unspecified; N12 Tubulo-interstitial nephritis, not specified as acute or chronic; N30.00 Acute cystitis without hematuria; Z20.822 Contact with and (suspected) exposure to COVID-19; D69.6 Thrombocytopenia, unspecified; E78.5 Hyperlipidemia, unspecified; E83.42 Hypomagnesemia; E87.6 Hypokalemia; E87.8 Other disorders of electrolyte and fluid balance, not elsewhere classified; I11.0 Hypertensive heart disease with heart failure; I48.0 Paroxysmal atrial fibrillation; R13.12 Dysphagia, oropharyngeal phase; T50.2X5A Adverse effect of carbonic-anhydrase inhibitors, benzothiadiazides and other diuretics, initial encounter; Z90.710 Acquired absence of both cervix and uterus; Z87.440 Personal history of urinary (tract) infections; Z80.0 Family history of malignant neoplasm of digestive organs; Z79.899 Other long term (current) drug therapy; Z79.1 Long term (current) use of non-steroidal anti-inflammatories (NSAID); W18.39XA Other fall on same level, initial encounter; Y93.89 Activity, other specified; Y92.89 Other specified places as the place of occurrence of the external cause; Y99.8 Other external cause status; Z68.21 Body mass index [BMI] 21.0-21.9, adult
CPT/HCPCS: 36415; 36600; 70450; 71045; 71250; 72125; 74176; 80053; 81001; 82270; 82435; 82607; 82728; 82746; 82803; 82947; 82948; 83036; 83540; 83550; 83605; 83690; 83735; 83880; 84132; 84145; 84295; 84443; 85018; 85025; 85610; 85730; 86757; 86850; 86900; 86901; 86923; 86927; 87040; 87088; 87635; 87804; 92526; 92610; 93005; 93306; 94660; 97039; A4344; A4351; C1751; C1894; C9803; G0378; J0282; J0360; J0696; J1650; J1756; J1940; J1953; J2543; J3475; J3480; J3490; J7030; J7050; J7060; P9016; P9017; Q0163; A4600